=== PATIENT | female | born 1975 | race American Indian/Alaskan Native ===

== ENCOUNTER 2018-09-06 05:57 | Day surgery (SDC) | payer MEDICARE ==
[2018-09-06] MEDS ORDERED: NACL 0.9% 1000 ML 1,000 ML IV SCH (07:00)
--- NOTE | 2018-09-06 07:30 | Anesthesia Consultation ---
Anesthesia Consult and Med Hx Date of service: 09/06/18 - Airway Anesthetic Teeth Evaluation: Good ROM Head & Neck: Adequate Mental/Hyoid Distance: Adequate Mallampati Class: Class III Intubation Access Assessment: Possibly Difficult - Pre-Operative Health Status ASA Pre-Surgery Classification: ASA3 Proposed Anesthetic Plan: MAC - Pulmonary Hx Smoking: No Hx Asthma: Yes COPD: No Hx Pneumonia: No Hx Sleep Apnea: Yes (uses CPAP) - Cardiovascular System Hx Hypertension: Yes Hx Coronary Artery Disease: No Hx Heart Attack/AMI: No Hx Angina: No Hx Percutaneous Transluminal Coronary Angioplasty (PTCA): No Hx Pacemaker: No Hx Internal Defibrillator: No Hx Valvular Heart Disease: No Hx Heart Murmur: No Hx Peripheral Vascular Disease: No - Central Nervous System Hx Seizures: Yes (small seizure last month, on Keppra) CVA: Yes Hx Psychiatric Problems: Yes (anxiety/depression) - Gastrointestinal Hx Ulcer: No - Endocrine Hx Renal Disease: No Hx End Stage Renal Disease: No Hx Cirrhosis: No Hx Liver Disease: No Hx Hypothyroidism: No Hx Hyperthyroidism: No - Hematic Hx Anemia: No Hx Sickle Cell Disease: No - Other Systems Hx Cancer: No Hx Obesity: Yes (BMI 76.9) - Additional Comments Anesthesia Medical History Comments: EGD for bariatric evaluation
--- NOTE | 2018-09-06 07:30 | Anesthesia Day of Surgery ---
Anesthesia Day of Surgery - Day of Surgery Patient Examined: Yes Patient H&P Reviewed: Yes Patient is NPO: Yes
[2018-09-06] MEDS ORDERED: DIPRIVAN 10 MG/ML IV ONE (07:49)
[2018-09-06] MEDS ORDERED: VERSED ONE (07:49)
[2018-09-06] MEDS ORDERED: XYLOCAINE 2% INFILTRATI ONE (07:49)
[2018-09-06 08:35] VITALS: BP 140/90
--- NOTE | 2018-09-06 09:07 | Operative Report ---
PREOPERATIVE DIAGNOSES: 1. Morbid obesity. 2. Dyspepsia. POSTOPERATIVE DIAGNOSES: 1. Large hiatal hernia, 6cm PROCEDURE: Esophagogastroduodenoscopy. ANESTHESIA: MAC. COMPLICATIONS: None. BLEEDING: None. SPECIMENS: None. INDICATIONS: The patient is a 42-year-old morbidly obese female, who wishes for weight loss operation. She is here for a preoperative EGD. Informed consent was obtained. DESCRIPTION OF PROCEDURE: The patient was brought to the operating suite where she was placed in the left lateral decubitus position, underwent MAC anesthesia. A bite block was placed and a timeout was called. A standard adult gastroscope was inserted into the oropharynx, down the esophagus, into the stomach. On retroflexion view, she was noted to have a large hiatal hernia measuring 6 cm approximately. There were no other lesions. The air was desufflated. The gastroscope was removed. The patient did have issues with desaturations during the case and required bag masking by Anesthesia during her procedure. She was then awakened from her procedure and taken to the PACU in stable condition. JOB# [id number] MALINDA/JOHN CRAWLEY
== END 2018-09-06 05:58 | disposition home or self-care (01) ==
LOC: GIO 05:57
PROVIDERS: ATTEND Specialist
DX: K30 Functional dyspepsia (principal); E66.01 Morbid (severe) obesity due to excess calories; K44.9 Diaphragmatic hernia without obstruction or gangrene; I10 Essential (primary) hypertension; G43.909 Migraine, unspecified, not intractable, without status migrainosus; F32.9 Major depressive disorder, single episode, unspecified; J45.909 Unspecified asthma, uncomplicated; G47.33 Obstructive sleep apnea (adult) (pediatric); Z98.51 Tubal ligation status; Z79.899 Other long term (current) drug therapy; Z68.45 Body mass index [BMI] 70 or greater, adult; Z87.440 Personal history of urinary (tract) infections; Z98.890 Other specified postprocedural states; Z86.73 Personal history of transient ischemic attack (TIA), and cerebral infarction without residual deficits; Z88.8 Allergy status to other drugs, medicaments and biological substances
CPT/HCPCS: 43235; 81025; J2250; J2704; J7030

== ENCOUNTER 2018-10-18 06:50 | Inpatient (IN) | payer MEDICARE ==
[~2018-10-18 06:50] MED LIST: ANCEF/STERILE WATER 2 GM/20 ML 2 GM/20 ML SYRINGE IV NR; APRESOLINE IV PRN; FLAGYL 500 MG/100 ML 500 MG/100 ML BAG IV NR; LOVENOX SUB-Q NR; REGLAN IV PRN; ZOFRAN IV PRN
--- NOTE | 2018-10-18 07:45 | Anesthesia Consultation ---
Anesthesia Consult and Med Hx Date of service: 10/18/18 - Airway Anesthetic Teeth Evaluation: Good ROM Head & Neck: Adequate Mental/Hyoid Distance: Adequate Mallampati Class: Class III Intubation Access Assessment: Possibly Difficult - Pre-Operative Health Status ASA Pre-Surgery Classification: ASA3 Proposed Anesthetic Plan: General - Pulmonary Hx Smoking: No Hx Asthma: Yes (RESCUE INHALER AND TREATMENTS) COPD: No Hx Pneumonia: No Hx Sleep Apnea: Yes (uses CPAP) - Cardiovascular System Hx Hypertension: Yes (2002) Hx Coronary Artery Disease: No Hx Heart Attack/AMI: No Hx Angina: No Hx Percutaneous Transluminal Coronary Angioplasty (PTCA): No Hx Pacemaker: No Hx Internal Defibrillator: No Hx Valvular Heart Disease: No Hx Heart Murmur: No Hx Peripheral Vascular Disease: No - Central Nervous System Hx Seizures: Yes (small seizure last month, on Keppra) CVA: Yes (2016; L SIDE WEAKNESS) Hx Back Pain: Yes (LOWER) Hx Psychiatric Problems: Yes (Depression/anxiety) - Gastrointestinal Hx Ulcer: No Hx Gastroesophageal Reflux Disease: Yes - Endocrine Hx Renal Disease: No Hx End Stage Renal Disease: No Hx Cirrhosis: No Hx Liver Disease: No Hx Hypothyroidism: No Hx Hyperthyroidism: No - Hematic Hx Anemia: No Hx Sickle Cell Disease: No - Other Systems Hx Cancer: No Hx Obesity: Yes (BMI 77.1)
--- NOTE | 2018-10-18 07:45 | Anesthesia Day of Surgery ---
Anesthesia Day of Surgery - Day of Surgery Patient Examined: Yes Patient H&P Reviewed: Yes Patient is NPO: Yes
[2018-10-18] MEDS ORDERED: ROXICODONE PO PRN (07:54)
[2018-10-18] MEDS ORDERED: PROVENTIL IH PRN (07:59)
[2018-10-18] MEDS ORDERED: TRANSDERM-SCOP TD SCH (08:00)
[2018-10-18] MEDS ORDERED: NEURONTIN PO NR (08:00)
[2018-10-18] MEDS ORDERED: KEPPRA PO NR (08:00)
[2018-10-18] MEDS ORDERED: VERSED IV NR (08:00)
[2018-10-18] MEDS ORDERED: PEPCID IV NR (08:00)
[2018-10-18] MEDS ORDERED: DIPRIVAN 10 MG/ML IV ONE (08:03)
[2018-10-18] MEDS ORDERED: XYLOCAINE MPF 2% ONE (08:03)
[2018-10-18] MEDS ORDERED: DILAUDID ONE (08:03)
[2018-10-18] MEDS ORDERED: ZEMURON IV ONE ×2 (08:04→10:17)
[2018-10-18] MEDS ORDERED: QUELICIN ONE (08:04)
[2018-10-18] MEDS: LACTATED RINGERS 1,000 ML IV SCH (08:10)
[2018-10-18] MEDS ORDERED: LACTATED RINGERS 1,000 ML ONE (08:12)
[2018-10-18] MEDS ORDERED: MARCAINE-EPI 0.5%-1:200,000 INFILTRATI ONE ×2 (08:40→09:00)
[2018-10-18] MEDS ORDERED: XYLOCAINE 1% 20 mL ONE (08:41)
[2018-10-18] MEDS ORDERED: NACL 0.9% IR ONE (09:00)
[2018-10-18] MEDS ORDERED: XYLOCAINE 1% 20 mL INFILTRATI ONE (09:00)
[2018-10-18] MEDS ORDERED: ZOFRAN ONE (11:15)
[2018-10-18] MEDS ORDERED: ROBINUL ONE (11:15)
[2018-10-18] MEDS ORDERED: BLOXIVERZ ONE (11:15)
[2018-10-18] MEDS ORDERED: NORMODYNE IV ONE (11:57)
[2018-10-18] MEDS ORDERED: NORMODYNE IV PRN (11:57)
[2018-10-18] MEDS: SUBLIMAZE IV PRN ×3 (12:07→18:33)
--- NOTE | 2018-10-18 13:14 | Operative Report ---
SURGEON: Nic Kern MD PILLING MACHINE OPERATOR: Camila Fuller MD; Mery Tavera MD PREOPERATIVE DIAGNOSIS: Super morbid obesity, BMI 77 kg per meter squared. POSTOPERATIVE DIAGNOSIS: Super morbid obesity, BMI 77 kg per meter squared. OPERATION: 1. Laparoscopic Camelia-en-Y gastric bypass, 150 cm antecolic antegastric: 2. Laparoscopic hiatal hernia repair. 3. Upper endoscopy. 4. Laparoscopic cholecystectomy. ANESTHESIA: General endotracheal anesthesia. COMPLICATIONS: None. BLEEDING: Minimal. SPECIMENS: Gallbladder. INDICATIONS: The patient is a 43-year-old female with a history of morbid obesity She has undergone preoperative bariatric workup and presents for her planned operation. She has also been having symptomatic right upper quadrant pain and was found preoperatively to have stones. She was consented for a gastric bypass and removal of her gallbladder. The risks, complications and alternatives were explained to the patient and informed consent was obtained. DESCRIPTION OF PROCEDURE: The patient was brought to the operating room where she was placed in a supine position and underwent general endotracheal intubation. She received preoperative antibiotics and DVT prophylaxis, and then she was prepped and draped in the usual sterile fashion. A timeout was called to ensure proper patient, indication, operation. Local analgesia was injected around the umbilical region and a small stab incision was made at the base of the umbilicus with insertion of a Veress needle. Insufflation pressures were achieved to 18 mmHg and then the incision was widened, and a 12 mm trocar was introduced. On laparoscopic view, there was no intra-abdominal injury. Additional 12 mm port was placed to the right of the midclavicular line and the 5 mm port was placed in the right lateral subxiphoid and left lateral quadrant. The ligament of Treitz was identified and the bowel was run for 50 cm antegrade. The bowel was transected at this point with a white load stapler and the staple line was cauterized for hemostasis. I then ran the bowel an additional 150 cm antegrade and a jejunojejunostomy was then performed with another white load stapler. The common enterotomy was closed with a white load stapler. An anti-kink stitch was placed with a 0 Surgidac suture and then the mesenteric defect was closed with a running 0 Surgidac suture. A liver retractor was placed and the patient was placed in a reverse steep Trendelenburg. Anesthesia placed an OG tube for decompression, but we were unable to get adequate decompression. Therefore, I went above and did an upper endoscopy, and used the endoscope to suction out the stomach. Next, liver retractor was placed and a hiatal dissection was performed dissecting off the esophageal gastric fat pad. The angle of His was dissected free. She had a small hiatal hernia after dissecting out the left and right casa. A 30 mL gastric pouch was then created first performing a retrogastric dissection with electrocautery and blunt dissection. The pouch was created with several blue load felisa and the staple line was cauterized after each fire for hemostasis. After this, an anterior cruroplasty was then done with 0 Surgidac suture in a U-stitch fashion and then a gastrojejunostomy was then performed utilizing medial and lateral stay stitches bringing up the Camelia limb. A 30 mm anastomosis was then done with a white load stapler and the common enterotomy was closed with 2 layers of running 2-0 V-Loc suture, narrowing the GJ anastomosis to 15 mm. The anastomosis was then submerged, the Camelia limb was clamped, and then an upper endoscopy was performed, which was negative for leak or any bleeding. The air was then suctioned out. The endoscope was removed. Next, we proceeded with our cholecystectomy. The liver retractor was removed. The fundus of the gallbladder was grasped and retracted cephalad and the infundibulum was retracted laterally. The overlying peritoneum over the gallbladder was scored medially and laterally. She did have some omental adhesions from the infundibulum of the gallbladder and the gallbladder was noted to be tense. I did have to first decompress the gallbladder with a needle aspirator before beginning the cholecystectomy. The cystic duct was dissected free. I was able to palpate a small stone at the neck of the gallbladder that was able to be milked retrograde. After the cystic plate was exposed and the cystic artery was seen, a critical view was obtained. The cystic duct and cystic artery was then clipped doubly on the stay side and once on the specimen side. The cystic artery did branch into 2 branches medially and laterally, which were clipped together. After division the gallbladder was removed off the gallbladder fossa with electrocautery and placed in the EndoCatch bag and removed from the umbilical port site. The right upper quadrant was irrigated for hemostasis and was found to be hemostatic and then the umbilical fascia was closed with #1 PDS using a Frederic-Andrea. All the air was desufflated and the ports were all removed. Additional local was injected into the wound sites and the incisions were closed with 4-0 Monocryl. Sterile bandages were placed over top of the incisions. The patient tolerated the procedure well and was extubated and left the operating room in stable condition. Counts were correct at the end of the case. FINDINGS: 1. Small hiatal hernia. 2. Tense edematous gallbladder with minor omental adhesions as well as a stone impacted in the neck of the gallbladder that was able to be milked retrograde. 3. Negative leak test. JOB# [id number] MALINDA/JOHN CRAWLEY
--- NOTE | 2018-10-18 13:35 | Post Anesthesia Evaluation ---
- Post Anesthesia Evaluation Patient Participated: Yes Airway Patent: Yes Stable Respiratory Function: Yes Nausea/Vomiting: No Temp > 96.8F: Yes Pain Manageable: Yes Adequeate Hydration: Yes Anesthesia Complications: No
[2018-10-18] MEDS: MYLICON PO PRN (17:32)
[2018-10-18] MEDS ORDERED: CATAPRES PO SCH (22:00)
[2018-10-18] MEDS ORDERED: TOPAMAX PO SCH (22:00)
[2018-10-18] MEDS: TORADOL IV SCH (22:26)
[2018-10-19] MEDS: LACTATED RINGERS 1,000 ML IV SCH (00:23)
[2018-10-19] MEDS: TORADOL IV SCH ×3 (04:07→08:32)
[2018-10-19] MEDS: KEPPRA PO SCH ×2 (04:10→08:39)
--- NOTE | 2018-10-19 06:17 | Discharge Summary ---
Providers - Providers Date of Admission: 10/18/18 06:50 Date of discharge: 10/19/18 Attending physician: ESTHER KERN Primary care physician: RADHA MATOS MD Hospitalization Reason for admission: postop care Condition: Good Procedures: 10/18/18: Laparoscopic RYGB, CCY, HHR, EGD Hospital course: 43F admitted after her operation for routine postop care. She did well overnight, tolerated her BIPAP, clears, ambulated in am, and was dc home. Disposition: DC-01 TO HOME OR SELFCARE Core Measure Documentation - Palliative Care Palliative Care/ Comfort Measures: Not Applicable - Core Measures Any of the following diagnoses?: none - VTE Discharge Requirements Deep Vein Thrombosis/Pulmonary Embolism Present on Admission: No - Acute SD Discharge Requirements Aspirin at discharge: No Reason for no aspirin on DC: Surgical contraindication - Heart Failure Discharge Requirements BALTA/ARB for LVSD if EF <40%: Not Applicable - Stroke Discharge Requirements Statin for LDL = or >70 mg/dl on DC: Not Applicable Exam - Physical Exam Narrative exam: Gen: AAO, NAD Heart: RRR Lungs: CTAB Abd: Soft, NT, ND. Bandages c/d/i. - Constitutional Vitals: Temp Pulse Resp BP Pulse Ox 99.0 F 98 H 20 148/87 99 10/19/18 04:19 10/19/18 04:17 10/19/18 04:17 10/19/18 04:17 10/19/18 04:17 Plan Diet: clear liquids Wound: keep clean and dry Special Instructions: no heavy lifting Additional Instructions: Kevyn Kern as scheduled Follow up with: RADHA MATOS MD [Primary Care Provider] - 7 Days
[2018-10-19] MEDS: MYLICON PO PRN (07:11)
[2018-10-19] MEDS ORDERED: XANAX PO PRN (07:56)
[2018-10-19 08:41] VITALS: BP 157/90
[2018-10-19] MEDS ORDERED: ZESTRIL PO SCH (10:00)
[2018-10-19] MEDS ORDERED: LOVENOX SUB-Q SCH (10:00)
[2018-10-19] MEDS ORDERED: LASIX PO SCH (10:00)
[2018-10-19 10:05] LABS: Basophils # (Auto) 0.1 K/mm3 (0.0-0.1); Basophils % (Auto) 0.6 % (0.0-1.8); Eosinophils # (Auto) 0.1 K/mm3 (0.0-0.4); Eosinophils % (Auto) 0.6 % (0.0-4.3); Hematocrit 27.1 % (30.3-42.9); Hemoglobin 9.1 gm/dl (10.1-14.3); Lymphocytes # (Auto) 1.5 K/mm3 (1.2-5.4); Lymphocytes % (Auto) 14.8 % (13.4-35.0); Mean Corpuscular HGB Conc 34 % (30-34); Monocytes # (Auto) 0.6 K/mm3 (0.0-0.8); Monocytes % (Auto) 6.2 % (0.0-7.3); Platelet Count 342 K/mm3 (140-440); Red Blood Count 4.16 M/mm3 (3.65-5.03)
[2018-10-19 10:09] LABS: Mean Corpuscular Volume 65 fl (79-97); Red Cell Distribution Width 20.7 % (13.2-15.2)
[2018-10-19 10:31] LABS: BUN/Creatinine Ratio 8; Blood Urea Nitrogen 4 mg/dL (7-17); Calcium 8.6 mg/dL (8.4-10.2); Hemolysis Index 26
== END 2018-10-19 15:20 | disposition home or self-care (01) | DRG 620 ==
LOC: 3A 06:50 → 3B-SURG 20:35
PROVIDERS: ADMIT Specialist; ATTEND Specialist
PROC: 0D164ZA Bypass Stomach to Jejunum, Percutaneous Endoscopic Approach (ICD-10-PCS; principal; 2018-10-18)
PROC: 0FT44ZZ Resection of Gallbladder, Percutaneous Endoscopic Approach (ICD-10-PCS; 2018-10-18)
PROC: 0BQT4ZZ Repair Diaphragm, Percutaneous Endoscopic Approach (ICD-10-PCS; 2018-10-18)
PROC: 5A09357 Assistance with Respiratory Ventilation, Less than 24 Consecutive Hours, Continuous Positive Airway Pressure (ICD-10-PCS; 2018-10-18)
DX: E66.01 Morbid (severe) obesity due to excess calories (principal); I69.354 Hemiplegia and hemiparesis following cerebral infarction affecting left non-dominant side; K80.11 Calculus of gallbladder with chronic cholecystitis with obstruction; I10 Essential (primary) hypertension; K44.9 Diaphragmatic hernia without obstruction or gangrene; Z68.45 Body mass index [BMI] 70 or greater, adult; G47.30 Sleep apnea, unspecified; F32.9 Major depressive disorder, single episode, unspecified; F41.9 Anxiety disorder, unspecified; J45.909 Unspecified asthma, uncomplicated; K21.9 Gastro-esophageal reflux disease without esophagitis; K30 Functional dyspepsia; G43.909 Migraine, unspecified, not intractable, without status migrainosus; Z71.3 Dietary counseling and surveillance; Z98.51 Tubal ligation status; Z82.49 Family history of ischemic heart disease and other diseases of the circulatory system; Z83.3 Family history of diabetes mellitus
CPT/HCPCS: 36415; 80048; 81025; 85025; 88304; 94660; G0378; J0330; J0690; J1170; J1650; J1885; J2250; J2405; J2704; J2710; J2765; J3010; J7120

== ENCOUNTER 2018-11-09 00:40 | Emergency (ER) | payer MEDICARE ==
[2018-11-09 02:25] VITALS: BP 144/94
[2018-11-09] MEDS ORDERED: KEPPRA 1,000 MG/NS 0.75% 100ML 1,000 MG/100 ML BAG IV ONE (03:12)
[2018-11-09] MEDS ORDERED: NACL 0.9% 1000 ML 1,000 ML IV ONE (03:12)
--- NOTE | 2018-11-09 04:07 | Emergency Department Report ---
ED Seizure HPI - General Chief Complaint: Seizure Time Seen by Provider: 11/09/18 02:52 Source: patient, EMS Mode of arrival: Stretcher Limitations: No Limitations - History of Present Illness Initial Comments: Please year-old female with history of morbid obesity, seizure disorder, presents to ED with complaint of abdominal pain, diarrhea and seizure at home. Patient states abdominal pain and diarrhea have been ongoing 2 days after eating tuna. Patient recently had a gastric bypass surgery 3 weeks ago. Patient states she believes the pain and diarrhea triggered her to have seizures tonight. Patient also reports that she has not been taking her Keppra for the last week, because the pills feel as if they're getting stuck in her throat. Patient denies fever, vomiting. Reports nausea. Surgeon: Nic Kern MD Complaint: seizure -: This morning Description of Episode: loss of consciousness, post-event confusion Seizure History: known seizure disorder, history of non-compliance Place: home Associated Symptoms: denies: chest pain, fever/chills, shortness of breath Treatments Prior to Arrival: none - Related Data Home Medications Medication Instructions Recorded Confirmed Last Taken ALBUTEROL Inhaler (OR & NICU) 2 puff IH QID PRN 10/14/18 10/18/18 10/18/18 02:00 [ProAir HFA Inhaler] ALBUTEROL NEB's [Proventil 0.083% 2.5 mg IH TID PRN 10/14/18 10/14/18 Unknown NEBS] ALPRAZolam [Xanax TAB] 0.5 mg PO BID PRN 10/14/18 10/14/18 10/17/18 21:00 AtorvaSTATin [Lipitor] 40 mg PO QHS 10/14/18 10/14/18 10/17/18 21:00 Furosemide [Lasix TAB] 40 mg PO QDAY 10/14/18 10/14/18 10/17/18 21:00 Lisinopril [Zestril TAB] 10 mg PO QDAY 10/14/18 10/14/18 10/17/18 21:00 Loratadine [Claritin] 10 mg PO DAILY 10/14/18 10/14/18 10/17/18 21:00 Ranitidine HCl [Zantac] 150 mg PO QHS PRN 10/14/18 10/14/18 10/17/18 21:00 Topiramate (Nf) [Trokendi XR CAP] 200 mg PO DAILY 10/14/18 10/14/18 10/17/18 21:00 busPIRone [Buspar] 5 mg PO TID PRN 10/14/18 10/14/18 10/17/18 21:00 cloNIDine [Catapres] 0.1 mg PO QHS 10/14/18 10/14/18 10/17/18 21:00 levETIRAcetam [Keppra TAB] 500 mg PO BID 10/14/18 10/18/18 10/18/18 08:40 traMADol [Ultram 50 MG tab] 50 mg PO Q6HR PRN 10/14/18 10/14/18 10/17/18 21:00 Allergies Allergy/AdvReac Type Severity Reaction Status Date / Time acetaminophen [From Vicodin] AdvReac Rash Verified 10/14/18 13:47 hydrocodone [From Vicodin] AdvReac Rash Verified 10/14/18 13:47 Iron infusion Allergy Shock and Uncoded 10/14/18 13:47 SOB ED Review of Systems ROS: Stated complaint: Other details as noted in HPI Comment: All other systems reviewed and negative Constitutional: denies: chills, fever Respiratory: denies: shortness of breath Cardiovascular: denies: chest pain Gastrointestinal: abdominal pain, nausea, diarrhea. denies: vomiting Neurological: headache ED Past Medical Hx - Past Medical History Previous Medical History?: Yes Hx Hypertension: Yes Hx CVA: Yes (apr 2014 was given tpa) Hx Heart Attack/AMI: No Hx Congestive Heart Failure: No Hx Diabetes: No Hx Deep Vein Thrombosis: No Hx Pulmonary Embolism: No Hx GERD: Yes Hx Liver Disease: No Hx Renal Disease: No Hx Sickle Cell Disease: No Hx Arthritis: Yes Hx Headaches / Migraines: Yes (MIGRAINES) Hx Seizures: No Hx Kidney Stones: No Hx Asthma: Yes (RESCUE INHALER AND TREATMENTS) Hx COPD: No Hx Tuberculosis: No Hx Dementia: No Hx HIV: No Additional medical history: chronic anemia - Surgical History Hx Coronary Stent: No Hx Pacemaker: No Hx Internal Defibrillator: No Additional Surgical History: Tubal ligation - Social History Smoking Status: Never Smoker - Medications Home Medications: Home Medications Medication Instructions Recorded Confirmed Last Taken Type ALBUTEROL Inhaler (OR & NICU) 2 puff IH QID PRN 10/14/18 10/18/18 10/18/18 02:00 History [ProAir HFA Inhaler] ALBUTEROL NEB's [Proventil 0.083% 2.5 mg IH TID PRN 10/14/18 10/14/18 Unknown History NEBS] ALPRAZolam [Xanax TAB] 0.5 mg PO BID PRN 10/14/18 10/14/18 10/17/18 21:00 History AtorvaSTATin [Lipitor] 40 mg PO QHS 10/14/18 10/14/18 10/17/18 21:00 History Furosemide [Lasix TAB] 40 mg PO QDAY 10/14/18 10/14/18 10/17/18 21:00 History Lisinopril [Zestril TAB] 10 mg PO QDAY 10/14/18 10/14/18 10/17/18 21:00 History Loratadine [Claritin] 10 mg PO DAILY 10/14/18 10/14/18 10/17/18 21:00 History Ranitidine HCl [Zantac] 150 mg PO QHS PRN 10/14/18 10/14/18 10/17/18 21:00 History Topiramate (Nf) [Trokendi XR CAP] 200 mg PO DAILY 10/14/18 10/14/18 10/17/18 21:00 History busPIRone [Buspar] 5 mg PO TID PRN 10/14/18 10/14/18 10/17/18 21:00 History cloNIDine [Catapres] 0.1 mg PO QHS 10/14/18 10/14/18 10/17/18 21:00 History levETIRAcetam [Keppra TAB] 500 mg PO BID 10/14/18 10/18/18 10/18/18 08:40 History traMADol [Ultram 50 MG tab] 50 mg PO Q6HR PRN 10/14/18 10/14/18 10/17/18 21:00 History ED Physical Exam - General Limitations: No Limitations General appearance: alert, in no apparent distress, obese - Head Head exam: Present: atraumatic, normocephalic - Eye Eye exam: Present: normal appearance, PERRL, EOMI - ENT ENT exam: Present: mucous membranes dry - Neck Neck exam: Present: normal inspection - Respiratory Respiratory exam: Present: normal lung sounds bilaterally. Absent: respiratory distress - Cardiovascular Cardiovascular Exam: Present: regular rate, normal rhythm - GI/Abdominal GI/Abdominal exam: Present: soft, tenderness (moderate epigastric tenderness), other (incision sites appear clean, dry, intact). Absent: distended - Extremities Exam Extremities exam: Present: normal inspection - Neurological Exam Neurological exam: Present: alert, oriented X3 - Psychiatric Psychiatric exam: Present: normal affect, normal mood - Skin Skin exam: Present: warm, dry, intact, normal color. Absent: rash ED Course Vital Signs 11/09/18 11/09/18 02:23 02:27 Temperature 97.9 F Pulse Rate 95 H Respiratory 20 19 Rate Blood Pressure 144/94 O2 Sat by Pulse 98 Oximetry ED Medical Decision Making - Medical Decision Making - labs unremarkable - pt feeling much better at this time - no seizures here in ED - Keppra bolus given - return precautions given - advised to f/u w/ surgeon Critical care attestation.: If time is entered above; I have spent that time in minutes in the direct care of this critically ill patient, excluding procedure time. ED Disposition Clinical Impression: Seizure, Abdominal pain, Diarrhea Disposition: -01 TO HOME OR SELFCARE Is pt being admited?: No Condition: Stable Referrals: PRIMARY CARE, [Referring] - 3-5 Days Time of Disposition: 05:38
== END 2018-11-09 05:43 | disposition home or self-care (01) ==
LOC: ED 00:40
DX: G40.909 Epilepsy, unspecified, not intractable, without status epilepticus (principal); R10.13 Epigastric pain; R19.7 Diarrhea, unspecified; I10 Essential (primary) hypertension; M19.90 Unspecified osteoarthritis, unspecified site; K21.9 Gastro-esophageal reflux disease without esophagitis; G43.909 Migraine, unspecified, not intractable, without status migrainosus; J45.909 Unspecified asthma, uncomplicated; Z86.73 Personal history of transient ischemic attack (TIA), and cerebral infarction without residual deficits; Z79.899 Other long term (current) drug therapy; Z98.51 Tubal ligation status; Z88.6 Allergy status to analgesic agent; Z88.8 Allergy status to other drugs, medicaments and biological substances
CPT/HCPCS: 82962; 93005; 93010; 96365; 99284; J1953; J7030